=== PATIENT | male | born 1970 | race Caucasian/White ===

== ENCOUNTER 2022-09-10 10:09 | Inpatient (IN) | payer OTHER ==
[~2022-09-10] VITALS: Ht 188 cm; Wt 90.9 kg
[2022-09-10] VITALS (7 sets, daily range): BP systolic 183–218; BP diastolic 59–93; PULSE 71–105; TEMP 97.5–98.1
[2022-09-10] MEDS ORDERED: GLUCOPHAGE1000 MG PO (10:20)
[2022-09-10] MEDS ORDERED: ZESTRIL 10MG10 MG PO (10:20)
[2022-09-10] MEDS ORDERED: HUMALOGKP50/50 SQ (10:21)
[2022-09-10 10:49] LABS: BASO # 0.1 K/mm3 (0.0-0.2); BASO % 1.1 % (0.0-2.0); EOS # 0.4 K/mm3 (0.0-0.7); EOS % 3.7 % (0.0-4.0); GRAN # 5.4 K/mm3 (1.4-6.5); GRAN % 53.4 % (42.2-75.2); HEMATOCRIT 42.9 % (42.0-52.0); HEMOGLOBIN 14.9 g/dl (13.5-18.0); LYMPH # 3.1 K/mm3 (1.2-3.4); LYMPH % 30.4 % (20.0-51.0); MEAN CELL VOLUME 87 fl (80.0-100.0); MEAN CORPUSCULAR HEMOGLOBIN 30 pg (27-31); MEAN CORPUSCULAR HGB CONC 35 g/dl (33.0-37.0); MEAN PLATELET VOLUME 10.6 fl (7.4-10.4); MONO # 1.1 K/mm3 (0.1-0.6); MONO % 10.7 % (1.7-9.3); PLATELET COUNT 322 K/mm3 (130-400); RED BLOOD COUNT 4.95 M/mm3 (4.20-5.60); REDCELL DISTRIBUTION WIDTH-CV 12.4 % (11.5-14.5)
[2022-09-10 11:09] LABS: ALBUMIN 2.7 gm/dL (3.5-5.0); BILIRUBIN,TOTAL 0.3 mg/dL (0.2-1.2); CALCIUM 9.1 mg/dL (8.4-10.2); CREATININE, serum 1.03 mg/dL (0.72-1.25); POTASSIUM 4.1 mmol/L (3.5-4.5); TOTAL PROTEIN 5.9 gm/dL (6.2-8.1)
[2022-09-10 11:15] LABS: TROPONIN-I 0.019 ng/mL (0.00-0.033)
[2022-09-10] MEDS ORDERED: TRESIBA FL100 UNIT/1 SQ (13:12)
[2022-09-10] MEDS ORDERED: DESYREL 100MG100 MG PO (13:12)
[2022-09-10] MEDS ORDERED: PROAIR HFA0.09 MG/AC IH (13:13)
[2022-09-10 19:17] LABS: COLLECTION METHOD CLEAN CATCH
[2022-09-10 19:21] LABS: URINE APPEARANCE Clear (CLEAR/HAZY); URINE COLOR Yellow (YELLOW)
[2022-09-10 19:22] LABS: URINE BLOOD TRACE-INTACT (NEGATIVE); URINE GLUCOSE Negative (NEGATIVE); URINE KETONE Negative (NEGATIVE); URINE NITRATE Negative (NEGATIVE); URINE PROTEIN(semi-quant) 3+ (NEGATIVE); URINE UROBILINOGEN 0.2 E.U/dL (0.2-1.0)
[2022-09-10 19:26] LABS: MUCOUS Present (NOT PRESENT); SQUAMOUS EPITHELIAL None Seen /hpf (0-10); URINE BACTERIA None Seen /hpf (NONE SEEN)
--- NOTE | 2022-09-10 20:39 | NUR ---
PCT reporting High BP on Pt. This BUFFING MACHINE OPERATOR SEMIAUTOMATIC went to check along with sow farm manager, BP was 218/86; HR 77.
[2022-09-11] VITALS (14 sets, daily range): BP systolic 130–210; BP diastolic 60–90; PULSE 81–100; TEMP 98.1–98.7
--- NOTE | 2022-09-11 02:05 | NUR ---
Pt complaining of headache around 2029, received Tylenol per orders. Pt BP rechecked after hydralazine administration remains high with 202/76 around 2122 and provider was notified. Verbal orders received to add initial dose for hydralazine. BP got rechecked again at 2206 and is 183/59 and pt was complaining of nausea and with emesis. Provider notified of this event; states she will be in pt's room to assess pt. Zofran and CT scan of the head ordered as well. Pt out for CT around 0000. Pt back to the unit around 0030 and new orders in place. cover mat machine operator administered IV medication for BP and nausea at 0044. Pt BP rechecked around 0140 of 149/60. No complaining of headache and nausea at this time. Will continue monitoring.
[2022-09-11 06:26] LABS: BASO # 0.1 K/mm3 (0.0-0.2); BASO % 0.5 % (0.0-2.0); EOS # 0.1 K/mm3 (0.0-0.7); EOS % 0.4 % (0.0-4.0); GRAN # 8.1 K/mm3 (1.4-6.5); HEMATOCRIT 42.8 % (42.0-52.0); HEMOGLOBIN 14.8 g/dl (13.5-18.0); LYMPH # 2.6 K/mm3 (1.2-3.4); LYMPH % 21.4 % (20.0-51.0); MEAN CELL VOLUME 87 fl (80.0-100.0); MEAN CORPUSCULAR HEMOGLOBIN 30 pg (27-31); MEAN CORPUSCULAR HGB CONC 35 g/dl (33.0-37.0); MEAN PLATELET VOLUME 10.7 fl (7.4-10.4); MONO # 1.2 K/mm3 (0.1-0.6); MONO % 10.2 % (1.7-9.3); PLATELET COUNT 332 K/mm3 (130-400); RED BLOOD COUNT 4.91 M/mm3 (4.20-5.60); REDCELL DISTRIBUTION WIDTH-CV 12.5 % (11.5-14.5)
[2022-09-11 06:45] LABS: CALCIUM 8.9 mg/dL (8.4-10.2); CHOLESTEROL RISK RATIO 6.1; CREATININE, serum 1.07 mg/dL (0.72-1.25); POTASSIUM 3.8 mmol/L (3.5-4.5)
--- NOTE | 2022-09-11 11:15 | NUR ---
SW met with patient to complete intake. Patient states that he lives in [facility] with his Karley [phone]. Patient states that he does not utilize DME, and is independent with ADL's and does not utilize home health services at this time. PCP is Dr. Elam, and pharmacy is [facility]. Patient states that his spouse is his DPOA/HC. Patient states that he plans to return to his home upon DC. DC plan: home
[2022-09-11] MEDS ORDERED: LIPITOR 80MG80 MG PO (12:56)
[2022-09-11] MEDS ORDERED: PLAVIX 75MG TAB75 MG PO (12:56)
[2022-09-11] MEDS ORDERED: ASPIRIN 81M81 MG/TA2 PO (12:57)
[2022-09-11] MEDS ORDERED: ZESTRIL 10MG10 MG PO (12:57)
--- NOTE | 2022-09-11 13:32 | NUR ---
Initial visit: Pt was resting and content with by his side. Pt has no needs right now. Pt and appreciated the visit. Sql Architect will follow up as needed.
--- NOTE | 2022-09-11 15:00 | NUR ---
CALL RECIEVED FROM TELEMETRY THAT THIS PATIENTS TELE LOOKS TO BE OFF. UPON ENTERING ROOM. PATIENT WAS OBVIOUSLY AGITATED, FULLY DRESSED SITTING ON BENCH INHIS ROOM, WITH HIS TELE MONITOR LAYING IN THE BED. WHEN THIS RN WALKED IN PATIENT STARTED STARTED TO RANT ABOUT "I DONT GET WHY YOU GUYS CHARGE THOUSANDS OF DOLLARS JUST FOR ME TO WAIT AROUND." PATIENT REPEATED HE IS TIRED OF WAITING. ALL DAY RN HAS UPDATED HIM AND ON PORCCESS AND STATUS OF WHAT IS GOING ON AND THE NEXT STEPS. REMINDED PATIENT THAT WHEN WE SPOKE EARLIER ABOUT OT NOT BEING HERE, AND THAT WE WERE MONITORING HIS BLOOD PRESURE TO ENSURE HE WAS STABLE ENOUGH TO GO HOME.
--- NOTE | 2022-09-11 15:01 | NUR ---
MD CALLED, NO ANSWER. PATIENT ADAMENT AT THIS TIME AND STATES HE IS "ABOUT TO WALK OUT." THIS RN CALLED MUSEUM GUIDE. IV REMOVED JUST ENCASE PATEINT WALKED OUT. MUSEUM GUIDE ATTEMPTED TO REACH MD AND WAS SUCESSFUL. SPOKE WITH PATIENT AND INFORMED HIM MD WAS TIED UP IN ANOTHER ROOM BUT SOON SHE FINISHED SHE WOULD BE BY TO SPEAK WITH HIM. PATIENT AGREED AT THIS TIME TO WAIT FOR MD. RN AND MUSEUM GUIDE PROVIDED EDUCATION ON CONSEQUENCES OF LEAVING AMA.
--- NOTE | 2022-09-11 15:54 | NUR ---
MD SPOKE WITH PATIENT RM THIS RN PRESENT. PATIENT CALMLY AGREED TO STAY. NEW IV PLACED TO RFA. TELEMETRY REAPPLIED. IV HYDRALIZINE ADMINISTERED.
[2022-09-12] VITALS (10 sets, daily range): BP systolic 148–188; BP diastolic 67–89; PULSE 58–88; TEMP 97.6–99
[2022-09-12 06:31] LABS: BASO # 0.1 K/mm3 (0.0-0.2); BASO % 0.7 % (0.0-2.0); EOS # 0.3 K/mm3 (0.0-0.7); EOS % 2.5 % (0.0-4.0); GRAN % 51.9 % (42.2-75.2); HEMOGLOBIN 14.7 g/dl (13.5-18.0); LYMPH # 3.8 K/mm3 (1.2-3.4); MEAN CELL VOLUME 89 fl (80.0-100.0); MEAN CORPUSCULAR HEMOGLOBIN 31 pg (27-31); MEAN CORPUSCULAR HGB CONC 34 g/dl (33.0-37.0); MEAN PLATELET VOLUME 11.1 fl (7.4-10.4); MONO # 1.3 K/mm3 (0.1-0.6); MONO % 11.2 % (1.7-9.3); PLATELET COUNT 309 K/mm3 (130-400); RED BLOOD COUNT 4.81 M/mm3 (4.20-5.60); REDCELL DISTRIBUTION WIDTH-CV 12.5 % (11.5-14.5)
[2022-09-12 06:42] LABS: CALCIUM 8.4 mg/dL (8.4-10.2); CREATININE, serum 1.09 mg/dL (0.72-1.25); POTASSIUM 3.3 mmol/L (3.5-4.5)
--- NOTE | 2022-09-12 12:54 | NUR ---
Renal Medicine Specialist rounds: Renal Medicine Specialist visit attempted. Patient stated that he believes he should be going home in enough time as to be able to watch the Super Bowl at home today instead of in the hospital. He declined the mechanical shovel operator visit for this reason.
--- NOTE | 2022-09-12 14:00 | NUR ---
PATIENT VOICED BEING AGRAVATED THAT THE MD HAS NOT BEEN BY TO SEE HIM OF YET. PATIENT WAS INFORMED THIS AM THAT PHYSICIANS TYPICALLY ROUND BETWEEN 9-11 AM, AND HE FEELS LIKE HIS EXPECTATIONS HAVE NOT BEEN MET TODAY. I INFORMED HIM THEY DO ON A TYPICAL DAY ROUND BETWEEN 9-11AM, HOWEVER WHAT ORDER THEY SEE PATIENTS IS BASED OFF ACUITY, AND WE ARE UNABLE TO PROVIDE HIM WITH A SPECIFIC TIME THAT THE DOCTOR WILL SEE HIM EACH DAY. PATIENT STILL UPSET AND WOULD LIKE TO SEE PHYSICIAN. MD AWARE. PLEASE SEE PHYSICIAN NOTIFICATION.
--- NOTE | 2022-09-12 17:30 | NUR ---
PATIENT RESTING IN BED, NO ISSUES OR COMPLAINTS AT THIS TIME. CALL LIGHT WITH IN REACH. PATIENT SIGNIFICANT OTHER AT BEDSIDE.
--- NOTE | 2022-09-13 03:12 | NUR ---
NURSING SHIFT ASSESSMENT COMPLETED. UPON ASSESSMENT IT WAS NOTED THE PATIENT WAS IN BED WITH HIS SPOUSE AND THEY WERE WATCHING THE [employer] GAME. THE PLAN OF CARE AND EVENING MEDICATIONS WERE DISCUSSED. EDUCATION WAS PROVIDED REGARDING THE PATIENT'S CONTINUATION OF BLOOD PRESSURE CHECKS EVEN AFTER DISCHARGE. METHODS AND TECHNIQUES REVIEWED. QUESTIONS AND CONCERNS WERE ANSWERED. CALL LIGHT WITHIN REACH AND BED IN LOW POSITION.
[2022-09-13 03:39] VITALS: BP 144/59; PULSE 71
[2022-09-13 06:32] LABS: BASO # 0.1 K/mm3 (0.0-0.2); BASO % 0.7 % (0.0-2.0); EOS # 0.4 K/mm3 (0.0-0.7); EOS % 2.9 % (0.0-4.0); GRAN % 48.6 % (42.2-75.2); HEMATOCRIT 41.3 % (42.0-52.0); HEMOGLOBIN 14.2 g/dl (13.5-18.0); LYMPH # 4.5 K/mm3 (1.2-3.4); MEAN CELL VOLUME 88 fl (80.0-100.0); MEAN CORPUSCULAR HEMOGLOBIN 30 pg (27-31); MEAN CORPUSCULAR HGB CONC 34 g/dl (33.0-37.0); MEAN PLATELET VOLUME 11.3 fl (7.4-10.4); MONO # 1.4 K/mm3 (0.1-0.6); PLATELET COUNT 305 K/mm3 (130-400); RED BLOOD COUNT 4.68 M/mm3 (4.20-5.60); REDCELL DISTRIBUTION WIDTH-CV 12.2 % (11.5-14.5)
[2022-09-13 06:50] LABS: CALCIUM 8.2 mg/dL (8.4-10.2); CREATININE, serum 1.26 mg/dL (0.72-1.25); POTASSIUM 3.7 mmol/L (3.5-4.5)
--- NOTE | 2022-09-13 07:00 | NUR ---
PT IS PLEASENT AT THIS TIME. PT RESTING IN BED. PT HAS CALL LIGHT WITHIN REACH AND INSTRUCTED TO CALL WITH ALL NEEDS. 0815- BEDSIDE AND DISCUSSING DISCHARGE.
[2022-09-13 08:00] VITALS: BP 165/86; PULSE 73; TEMP 98.2
[2022-09-13] MEDS ORDERED: LOPRESSOR 225 MG/TAB PO (08:07)
[2022-09-13] MEDS ORDERED: HCTZ 25MG TAB25 MG PO (08:08)
--- NOTE | 2022-09-13 08:09 | NUR ---
THIS SOLAR LAB TECHNICIAN HAS HAD MULTIPLE ENCOUNTERS WITH THIS PATIENT THAT WERE ACCUSATORY, THREATENING, AGGRESSIVE AND DEROGATORY. THE PATIENT STATED MULTIPLE TIMES TO MULTIPLE STAFF MEMBERS THAT HE HAD HIS OWN MEDICATIONS WITH HIM AND THAT IF HE DIDN'T GET WHAT HE WANTED HE WAS GOING TO TAKE HIS OWN MEDICATIONS. THE PATIENT WAS ADVISED NOT TO DO THAT AND EDUCATED ON THE REASONS TO WHY NOT. THE PATIENT AGGRESSIVELY DEMANDED THAT SOMETHING BE DONE ABOUT THE NOISE IN THE ROOM NEXT DOOR THAT WHO EVER WAS IN THERE WAS TALKING TO LOUDLY AND AT ONE POINT TOLD THE NURSE TO " SHUT UP" WHEN HE WALKED BY. THE PATIENT AGGRESSIVELY DEMANDED BETTER "CUSTOMER SERVICE" HE WAS A PAYING CUSTOMER AND THAT HIS " HIS SOFT DRINK" AND "MEDICATIONS" WERE NOT PROVIDED IN A TIMELY FASHION. THE PATIENT OVER AND OVER KEPT ASKING "DON'T YOU KNOW WHAT CUSTOMER SERVICE IS? YOUR POOR CUSTOMER SERVICE IS WHY YOUR HOSPITAL RATINGS ARE A 2 AND YOU SHOULD BE ASHAMED OF THAT. AREN'T UP ASHAMED OF THAT? JOSUÉ, AREN'T YOU ASHAMED OF THAT.I'M PAYING A LOT OF MONEY TO BE HERE AND I WILL TAKE MY OWN MEDICATION." THE PATIENT WAS REMINDED THAT SOME PATIENT'S DON'T HEAR WELL SO STAFF AT TIMES DOES HAVE TO SPEAK MORE LOUDLY. THESE TYPES OF CONVERSATIONS KEPT COMING UP THE HOUSE SUPERVISORS WERE INVOLVED TO TRY AND GET SOME FORM OF RESOLUTION. THE PATIENT WOULD BE CALM FOR A TIME, THEN JUST "BLOW UP" ABOUT SOMETHING AND BULLY STAFF. THE PATIENT TOLD THE DIESEL ENGINE TESTER OMAR ESPINOSA THAT IF THIS SOLAR LAB TECHNICIAN ENTERED HIS ROOM AGAIN HE WAS GOING TO PHYSICALLY REMOVE HER. NO AMOUNT OF INFORMATION, DISCUSSION, APOLOGIES, MATTERED TO THIS PATIENT THE AGGRESSIVE BEHAVIOR CONTINUED UNTIL HE CHOSE TO STOP IT.
--- NOTE | 2022-09-13 10:04 | NUR ---
Initial visit; Patient thanked Box Tender for loking in on him and offering to keep him in her prayers.
--- NOTE | 2022-09-13 10:14 | NUR ---
IV AND TELE DC'D. DISCHARGE INSTUCTIONS DISCUSSED WITH PT. ALL QUESTIONS ANSWERED. PT WALKED OUT FOR DISCHARGE.
== END 2022-09-13 10:15 | disposition home or self-care (01) | DRG 65 ==
LOC: COL.ER 10:09 → MEDICAL 12:05
PROVIDERS: Nurse Practitioner; Physician Assistant; ADMIT Hospitalist
DX: I63.9 Cerebral infarction, unspecified (principal); I69.354 Hemiplegia and hemiparesis following cerebral infarction affecting left non-dominant side; I10 Essential (primary) hypertension; E11.9 Type 2 diabetes mellitus without complications; F17.210 Nicotine dependence, cigarettes, uncomplicated; F10.90 Alcohol use, unspecified, uncomplicated; F12.90 Cannabis use, unspecified, uncomplicated; Z20.822 Contact with and (suspected) exposure to COVID-19; J45.909 Unspecified asthma, uncomplicated; R29.701 NIHSS score 1; G47.33 Obstructive sleep apnea (adult) (pediatric); G47.00 Insomnia, unspecified; Z79.4 Long term (current) use of insulin; Z79.82 Long term (current) use of aspirin; Z23 Encounter for immunization
CPT/HCPCS: J0360; J1650; J1815; J2405; J2550; J7030

== ENCOUNTER 2022-09-20 11:15 | Outpatient (RCR) | payer OTHER ==
[~2022-09-20 11:15] MED LIST: ASPIRIN 81M81 MG/TA2 PO; DESYREL 100MG100 MG PO; GLUCOPHAGE1000 MG PO; HCTZ 25MG TAB25 MG PO; HUMALOGKP50/50 SQ; LIPITOR 80MG80 MG PO; LOPRESSOR 225 MG/TAB PO; PLAVIX 75MG TAB75 MG PO; PROAIR HFA0.09 MG/AC IH; TRESIBA FL100 UNIT/1 SQ; ZESTRIL 10MG10 MG PO
== END 2022-09-28 | disposition home or self-care (01) ==
LOC: MKS.ESL.PT
DX: I69.354 Hemiplegia and hemiparesis following cerebral infarction affecting left non-dominant side (principal)

== ENCOUNTER 2022-10-25 10:05 | Emergency (ER) | payer OTHER ==
[~2022-10-25] VITALS: Ht 188 cm; Wt 83.2 kg
[2022-10-25 10:51] LABS: BASO # 0.1 K/mm3 (0.0-0.2); BASO % 0.7 % (0.0-2.0); EOS # 0.4 K/mm3 (0.0-0.7); EOS % 2.2 % (0.0-4.0); GRAN # 10.3 K/mm3 (1.4-6.5); HEMATOCRIT 46.4 % (42.0-52.0); HEMOGLOBIN 16.5 g/dl (13.5-18.0); LYMPH # 4.5 K/mm3 (1.2-3.4); LYMPH % 26.9 % (20.0-51.0); MEAN CELL VOLUME 85 fl (80.0-100.0); MEAN CORPUSCULAR HEMOGLOBIN 30 pg (27-31); MEAN CORPUSCULAR HGB CONC 36 g/dl (33.0-37.0); MEAN PLATELET VOLUME 11.9 fl (7.4-10.4); MONO # 1.4 K/mm3 (0.1-0.6); MONO % 8.2 % (1.7-9.3); PLATELET COUNT 364 K/mm3 (130-400); RED BLOOD COUNT 5.48 M/mm3 (4.20-5.60); REDCELL DISTRIBUTION WIDTH-CV 11.6 % (11.5-14.5)
[2022-10-25 11:01] LABS: ALANINE AMINOTRANSFERASE 29 U/L (0-55); ALBUMIN 3.8 gm/dL (3.5-5.0); ALKALINE PHOSPHATASE 106 U/L (40-150); ANION GAP 14 mmol/L (7-16); AST,SGOT 14 U/L (5-34); BILIRUBIN,TOTAL 0.4 mg/dL (0.2-1.2); BLOOD UREA NITROGEN 70 mg/dL (8-26); CALCIUM 9.8 mg/dL (8.4-10.2); CARBON DIOXIDE 18 mmol/L (22-29); CHLORIDE 98 mmol/L (98-107); GLUCOSE 346 mg/dL (70-99); LIPASE 98 U/L (8-78); POTASSIUM 4.6 mmol/L (3.5-4.5); SODIUM 130 mmol/L (136-145); TOTAL PROTEIN 8.1 gm/dL (6.2-8.1)
[2022-10-25 11:06] LABS: COLLECTION METHOD CLEAN CATCH
[2022-10-25 11:17] LABS: SQUAMOUS EPITHELIAL 0-2 /hpf (0-10); URINE BACTERIA None Seen /hpf (NONE SEEN); URINE RBC 0-2 /hpf (0-2)
[2022-10-25 11:20] LABS: URINE APPEARANCE Clear (CLEAR/HAZY); URINE COLOR Amber (YELLOW)
[2022-10-25 11:21] LABS: URINE BLOOD Negative (NEGATIVE); URINE GLUCOSE Negative (NEGATIVE); URINE KETONE TRACE (NEGATIVE); URINE NITRATE Negative (NEGATIVE); URINE PROTEIN(semi-quant) 3+ (NEGATIVE); URINE UROBILINOGEN 0.2 E.U/dL (0.2-1.0)
[2022-10-25 11:26] LABS: ACETONE,SERUM NEGATIVE
[2022-10-25] MEDS ORDERED: NORCO 325 MG-51 TAB PO (13:17)
[2022-10-25 13:28] VITALS: BP 163/89; PULSE 72; TEMP 98.3
== END 2022-10-25 13:30 | disposition home or self-care (01) ==
LOC: COL.ER 10:05
PROVIDERS: Physician Assistant
DX: E86.0 Dehydration (principal); E11.9 Type 2 diabetes mellitus without complications; D72.829 Elevated white blood cell count, unspecified; N17.9 Acute kidney failure, unspecified; E87.1 Hypo-osmolality and hyponatremia; Z79.4 Long term (current) use of insulin; Z87.891 Personal history of nicotine dependence; Z20.822 Contact with and (suspected) exposure to COVID-19
CPT/HCPCS: J2270; J7030